=== PATIENT | male | born 1960 | race Caucasian/White ===

== ENCOUNTER → 2020-06-04 11:23 | Outpatient (CLI) | payer BC, SELFPAY ==
--- NOTE | ~2020-06-04 | US_ITS ---
EXAMINATION: US venous doppler [facility] DATE: 06/04/2020 12:04 INDICATION: Lower limb pain TECHNIQUE: Arcos scale images without and with compression and Doppler images of the bilateral lower e xtremity veins were obtained. COMPARISON: 08/11/2014 FINDINGS: The right common femoral vein, profunda femoral vein, femoral vein, popliteal vein, peroneal trunk, p osterior tibial veins, and greater saphenous vein are patent. A normal-appearing varicose vein is see n in the region of the patient's right calf pain. The left common femoral vein, profunda femoral vein, femoral vein, popliteal vein, peroneal trunk, po sterior tibial veins, and greater saphenous vein are patent. IMPRESSION: 1. Patent bilateral lower extremity veins. No evidence of deep venous thrombosis. Reviewed, dictated and finalized at location A. [employer] IMPRESSION: 1. Patent bilateral lower extremity veins. No evidence of deep venous thrombosi s.
== END ==
PROVIDERS: PCP Family Medicine; Visit Provider Physician Assistant Medical
DX: M79.604 Pain in right leg (principal); I83.893 Varicose veins of bilateral lower extremities with other complications
CPT/HCPCS: 93970

== ENCOUNTER 2022-06-24 11:30 | Outpatient (CLI) | payer BC, SELFPAY ==
[2022-06-24 12:14] LABS: Basophils Percent Auto 0.6 % (0.2-1.2); Eosinophils Absolute Auto 0.3 K/mm3 (0-0.3); Eosinophils Percent Auto 5.4 % (0-4.4); Hematocrit 45.3 % (42.0-52.0); Hemoglobin 15.1 g/dL (14.0-18.0); Immature Granulocyte Absolute 0.01 K/mm3 (0.00-0.031); Immature Granulocyte Percent A 0.2 % (0-0.5); Lymphocytes Absolute Auto 1.78 K/mm3 (0.9-3.2); Lymphocytes Percent Auto 28.2 % (18.3-44.2); Mean Corpuscular HGB Conc 33.3 g/dl (32-36); Mean Corpuscular Hemoglobin 30.9 pg (26-34); Mean Corpuscular Volume 92.8 fl (80-100); Mean Platelet Volume 10.2 fl (7.4-10.4); Monocytes Absolute Auto 0.5 K/mm3 (0.1-0.6); Monocytes Percent Auto 8.4 % (2.6-8.5); Neutrophils Absolute Auto 3.6 K/mm3 (1.3-6.7); Neutrophils Percent Auto 57.2 % (45.5-73.1); Platelet Count Result 245 k/mm3 (150-375); Red Blood Count 4.88 M/mm3 (4.6-6.20); Red Cell Distribution Width 12.6 % (11.5-14.5); White Blood Count 6.3 K/mm3 (4.5-10.0)
[2022-06-24 12:28] LABS: Alanine Aminotransferase 18 U/L (6-50); Albumin Level 4.7 g/dL (3.5-5.1); Alkaline Phosphatase 88 U/L (38-126); Anion Gap 10 mmol/L (8-16); Aspartate Amino Transferase 20 U/L (17-59); Bilirubin,Total 0.8 mg/dL (0.2-1.3); Blood Urea Nitrogen 15 mg/dL (9-20); Calcium 9.2 mg/dL (8.4-10.2); Carbon Dioxide 29 mmol/L (22-30); Chloride 102 mmol/L (98-107); Cholesterol 186 mg/dL (0-200); Estimated Glomerular Filt Rate > 60; Glucose 102 mg/dL (65-110); HDL Direct 45 mg/dL; Potassium 4.3 mmol/L (3.4-5.0); Sodium 141 mmol/L (137-145); Triglycerides 84 mg/dL (<150)
[2022-06-24 12:39] LABS: LDL Cholesterol Direct 111 mg/dL
[2022-06-24 12:57] LABS: Prostate Specific Antigen 2.1 ng/mL (< OR = 4.0)
[2022-06-24 13:17] LABS: Vitamin D 25 Hydroxy 80.6 ng/mL
== END 2022-06-24 11:31 | disposition home or self-care (01) ==
LOC: ANHLAB 11:33
PROVIDERS: PCP Family Medicine; Visit Provider Physician Assistant Medical
DX: E55.9 Vitamin D deficiency, unspecified (principal); Z12.5 Encounter for screening for malignant neoplasm of prostate; Z13.1 Encounter for screening for diabetes mellitus; N52.9 Male erectile dysfunction, unspecified; F41.8 Other specified anxiety disorders; E78.5 Hyperlipidemia, unspecified
CPT/HCPCS: 36415; 80053; 80061; 82306; 84153; 85025; G0103